=== PATIENT | male | born 1960 | race Caucasian/White ===

== ENCOUNTER 2019-03-11 08:52 | Observation (INO) ==
[2019-03-11] MEDS ORDERED: ASPIRIN CHEW 324 MG PO STA (11:27)
[2019-03-11] MEDS ORDERED: ASPIRIN 325 MG ECTAB PO ONE (11:30)
--- NOTE | 2019-03-11 11:55 | Pre Anesthesia Assessment ---
Date of Service March 11, 2019 Pre Sedation Assessment Cardiovascular + regular rate Respiratory normal respiratory effort, lungs clear to auscultation Pre-Sedation Airway Assessment Smoking Status: Never smoker Mallampati Class: III ASA: ASA3 NPO Status Date of Last Intake of Fluids: 03/11/19 Time of Last Intake of Fluids: 05:00 Date of Last Intake of Solid Food: 03/11/19 Time of Last Intake of Solid Foods: 05:00 Procedure Planning Contraindications for Sedation: none Current Medications Reviewed: Yes Notes The planned sedation has been discussed with the patient. Informed Consent was obtained. I have identified the patient, determined the appropriateness of sedation and have assessed the patient immediately prior to the procedure. All medicine(s) and interventions are by my order.
--- NOTE | 2019-03-11 12:04 | Cardiology Consultation ---
Date of Consultation March 11, 2019 Assessment & Plan (1) Abnormal stress echo: (2) Exertional angina: (3) High-grade atrioventricular block: (4) Hypertension: ASSESSMENT/PLAN: 1. Abnormal stress echo: Given his presenting symptoms, abnormal stress echo imaging, and development of high-grade AV block following exercise, there is significant concern for ischemic heart disease. Recommend coronary angiography. Risks and benefits were discussed with him in detail. He was made aware that CT surgery is not available at this facility. Stat labs ordered. 2. Exertional angina: Symptoms concerning for angina as noted above. Aspirin as above. Coronary angiography. Can continue beta-loyd (if severe CAD and not primarily a conduction issue) and SENIA-inhibitor. Stat labs ordered. If he is found to have CAD, recommend high-intensity statin therapy. Currently, no chest pain. 3. High-grade AV block: This occurred following exertion. He was quite symptomatic. If he is found to have no significant CAD, would then recommend electrophysiology consultation for consideration of pacemaker. Given that yhis occurred with exertion however, CAD may be the issue. Plan as above. Pacer pads in place. 4. Hypertension: Blood pressure mildly elevated. Would recommend continuation of home lisinopril dose. If he is found to have severe CAD, would continue beta-loyd. 5. Disposition: Cardiology will continue to follow. Patient presentation and plan discussed with admitting physician, Dr. Rivera, of the primary hospitalist service. Highly complex medical issues. Thank you for allowing me to participate in the care of your patient. Please call for any other questions or concerns. Sincerely, Sumit Childers M.D. History of Present Illness Reason for Consultation: Abnormal stress echo; high degree AV block following exercise Requesting Physician: Dr. Rivera Attending Physician: Dr. Rivera History of Present Illness Mr. Aguillon is a very pleasant 58-year-old gentleman with a history significant for hypertension who presented today for outpatient stress echo as ordered by Dr. Covarrubias, his PCP. Due to abnormal findings during stress echo, he was referred for admission. He states that for the past 3 years he has had borderline hypertension. He then noted that his diastolic pressure was elevated. He was then started on lisinopril 10 mg daily which was titrated to 20 mg daily. He recently was also started on metoprolol succinate 25 mg daily. He has noted over the past few months however since October or November that his exercise tolerance has decreased. He has left-sided chest tightness with "moderate" activity. This has progressed however over the past 60 days or so. Now even walking the stairs in his home can cause this chest tightness with dyspnea. There is no diaphoresis and no radiation of the pain. He denies any pain at rest. The chest discomfort resolves within 1-2 minutes of rest. He also has occasional lightheadedness with activity but no syncope. Because of his symptoms, he was referred for outpatient stress testing. During the stress echo today, he stated that he was doing better than he usually does. Just past the 6 minutes uma of the Cade protocol, he became more fatigue but dyspnea. He was in sinus tachycardia at that time. He then moved to the bed to undergo stress echo imaging. At that time, he developed Mobitz 1 and his heart rate went from 141 to 60 bpm in less than 1 minute into recovery. He then appeared to have complete AV dissociation with junctional rhythm with heart rates in the upper 40s. When this occurred, he felt very lightheaded, diaphoretic, and more short of breath. He had no left-sided chest discomfort during the stress echo or in recovery however. His blood pressure remained stable throughout. Then at approximately 6 minutes into recovery, he recovered AV michelle conduction and his symptoms immediately resolved. He denies any recent melena, hematochezia, hematuria, palpitations, edema, syncope, near-syncope, abdominal pain, nausea, vomiting, or recent fevers. Although he has had recent lightheadedness with exertion, he has not had anything nearly as profound as what was experience today during his stress echo. Stress echo images were preliminary early reviewed. LV systolic function did not significantly improve and LAD territory did not demonstrate significant augmentation following exercise. The right ventricle also appeared to be more dilated with reduced systolic function following exercise. Formal review to follow. Once he regained conduction through the AV node, he was completely asymptomatic and back to baseline. Review of systems: As above. Review of systems otherwise negative/unremarkable. Home medications: 1. Lisinopril 20 mg daily 2. Metoprolol succinate 25 mg daily Family history: No known premature CAD. Mother had valvular heart disease. Mother and father have . Social history: Denies tobacco or alcohol abuse. Lives at home with his . They have 1 son and 1 daughter. Daughter is to a visual stylist, Silas Zebanirudh (practices in the [place] area). 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 He was unaccompanied at the time of our discussion. Allergies Allergy/AdvReac Type Severity Reaction Status Date / Time No Known Allergies Allergy Verified 03/11/19 12:05 Home Medications Home Medications Medication Instructions Recorded Confirmed Type lisinopril 20 mg PO DAILY 03/11/19 03/11/19 History metoprolol succinate 25 mg PO DAILY 03/11/19 03/11/19 History Patient History Medical History Hypertension Lyme disease Social History Preferred Language: Icelandic Communication Ability: Effective Beliefs That Will Affect Care: None Current Living Situation: Spouse Feels Safe at Home: Yes Smoking Status: Never smoker Hx Alcohol Use: No Hx Substance Use: No Physical Exam Physical Exam: Gen.: No acute distress. Alert and oriented. HEENT: Anicteric sclera. Neck: No JVD. No bruits. Normal carotid upstrokes bilaterally. Cardiac: PMI was nondisplaced. No ventricular heave. Regular. Normal S1-S2. 1/6 systolic murmur. No rubs, or gallops. Pulmonary: Clear to auscultation bilaterally without wheezes, rales, or rhonchi. Abdomen: Soft, nontender, nondistended, with normoactive bowel sounds. No bruits noted. Extremities: 2+ radial pulses bilaterally. 2+ posterior tibialis pulses bilaterally. No edema or cyanosis. No palpable cords. Psychiatric: Affect appears appropriate. Results & Data Vital Signs (Past 12 Hours) Blood pressure 157/106 Pulse 87 bpm Respirations 16 per minute Temperature 36.8 Oxygen saturation 96% on room air Laboratory Results Labs 02/06/2019: Sodium 135; potassium 3.9; BUN 11; creatinine 0.85; troponin undetectable; AST 30; ALT 53; TSH 0.876; WBC 5.84; hemoglobin 14.3; platelets 258 Labs 11/05/2018: LDL 119; HDL 35; total cholesterol 182; triglycerides 199 Diagnostic Findings Stress echo findings as noted above in the HPI. Resting ECG personally reviewed: Sinus rhythm with sinus arrhythmia at [address]/T-wave abnormality. Medications Administered Aspirin 325 mg p.o. x1 PG Care Time/CCT Total # of Minutes Spent Total Time Spent with Patient: Total time spent is greater than 50% in coordination of care (as documented) at patient's floor/unit and/or counseling patient:
[2019-03-11 12:36] LABS: Basophils # (auto) 0.02 K/uL (0-0.2); Basophils % (auto) 0.3 %; Eosinophils # (auto) 0.02 K/uL (0-0.5); Eosinophils % (auto) 0.3 %; Hematocrit (blood only) 40.1 % (42-52); Hemoglobin 13.6 g/dL (14.0-18.0); Immature Granulocytes # (auto) 0.01 K/uL (0.00-0.02); Immature Granulocytes % (auto) 0.2 %; Lymphocytes % (auto) 21.3 %; Mean Corpuscular Hemoglobin 32.5 pg (25-34); Mean Corpuscular Volume 95.7 fL (80-100); Mean Platelet Volume 9.7 fL (7.4-10.4); Monocytes # (auto) 0.44 K/uL (0.11-0.59); Monocytes % (auto) 7.2 %; Neutrophils # (auto) 4.32 K/uL (1.4-6.5); Neutrophils % (auto) 70.7 %; Platelet Count 242 K/uL (130-400); RDW Coefficient of Variation 12.5 % (11.5-14.5); RDW Standard Deviation 43.3 fL (36.4-46.3); Red Blood Count 4.19 M/uL (4.7-6.1); White Blood Count 6.11 K/uL (4.8-10.8)
[2019-03-11 12:43] LABS: Prothrombin Time 10.7 Seconds (9.0-12.0)
[2019-03-11] MEDS ORDERED: HEPARIN (PORCINE) 1000 UNIT/ML 10 ML (CATH LAB USE ONLY) ONE (12:44)
[2019-03-11] MEDS ORDERED: MIDAZOLAM HCL 1 MG/ML 2ML VIAL ONE ×3 (12:44→14:42)
[2019-03-11] MEDS ORDERED: NiCARDipine HCL INJ 2.5 MG/ML 10 ML AMP ONE (12:44)
[2019-03-11] MEDS ORDERED: fentaNYL citrate 100 MCG/2 ML VIAL ONE ×2 (12:44→14:41)
[2019-03-11] MEDS ORDERED: NITROGLYCERIN/D5W 100MCG/ML 20ML SYR ONE (12:45)
[2019-03-11 12:48] LABS: BUN Creatinine Ratio 19.3 (10-20); Calcium 9.7 mg/dl (8.5-10.1); Est GFR (African American) 105.8; Est GFR (Non-African American) 91.3; Magnesium 2.4 mg/dl (1.8-2.4); Potassium 4.1 mmol/L (3.5-5.1)
[2019-03-11 12:58] LABS: Thyroid Stimulating Hormone 0.776 uIu/ml (0.300-4.500)
[2019-03-11 13:07] LABS: Mean Corpuscular Hgb Conc 33.9 g/dL (32-36)
[2019-03-11] MEDS ORDERED: NITROGLYCERIN SL 0.4 MG/TAB TAB ONE (13:35)
[2019-03-11] MEDS ORDERED: ADENOSINE IV SOLN 3 MG/ML 20 ML VIAL IV ONE (14:16)
--- NOTE | 2019-03-11 14:54 | Cardiac Catheterization ---
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 Clinical evaluation leading to the procedure CAD Presenation: Positive Stress Test and Stable angina Anginal Classification: CCS III Heart Failure: No Cardiogenic Shock within 24 Hours: No Cardiac Arrest within 24 Hours: No Imaging Studies Past 6 Months: No Stress Studies Past 6 Months: Yes Standard Exercise Test: Yes - Positive and Risk/Extent of Ischemia (High) Stress Echocardiogram: Yes - Positive and Risk/Extent of Ischemia (High) Stress Testing w/SPECT MPI: No Cardiac CTA: No Coronary Anatomy Dominant: Right Left Ventricular Angiography EF (%): n/a Diagnostic Physicians Name: Peter Childers MD Status: Elective Closure Device Percutaneous Entry Location: Femoral Closure Device: None-Manual Hold (will be determined by Interventional cardi ology) Recommendations: Management Recommendatons (Further evaluation of RCA and Circumflex by interventional cardiology.) Cardiac Cath Procedure Full Procedure Date March 11, 2019 Pre-Procedure Diagnosis Pre-Procedure Diagnosis: Angina, Positive Stress Test and Arrhythmia (High grade AV block following exercise (as part of stress echo)) AUC Score AUC Score: 9 Post-Procedure Diagnosis Post-Procedure Diagnosis: Severe CAD and Normal Intracardiac Pressures Procedure(s) Performed Procedure(s) Performed: Coronary Angiography, Left Heart Cath and Ultrasound Guided Vascular Access Credit Adjuster Peter Childers MD Lighting Fixture Installer(s) Gilbert Addison Estimated Blood Loss Estimated Blood Loss: < 30 ml Medication(s) Medication(s): Fentanyl, Lidocaine 1%, Nicardipine, Nitroglycerin and Versed Summary of Findings Procedures: 1. Coronary angiography 2. Left heart catheterization 3. Ultrasound guidance for vascular access 4. Moderate sedation Procedural details: 1. Right radial artery was easily cannulated with slender sheath. Wire was easily advanced into the aorta however a 6 Latvian JL 3.5 diagnostic catheter was unable to be advanced beyond the brachial artery due to spasm. A 4 Latvian catheter was then attempted, but once again the diagnostic catheter was unable to be advanced beyond the brachial artery, despite multiple doses of intra- arterial nicardipine, nitroglycerin, and then a sublingual nitroglycerin. 2. The decision was made to proceed via the right femoral artery. Coronary angiography: 1. Left main coronary artery: The LMCA is large in caliber without significant CAD. 2. Left anterior descending: The LAD is a large-caliber vessel that extends to the apex. LAD calcifications noted. Diffuse late proximal to mid LAD disease. The late proximal LAD with approximately 50% stenosis with the mid LAD 95+%, involving the ostium of a large D1. Proximal D1 50 - 70% diffuse CAD. Small D2 without significant CAD. The remainder of LAD without significant CAD. EARLINE-3 flow. 3. Circumflex: The circumflex is a large-caliber vessel. Proximal circumflex 50 - 70%. Small OM1 and large OM 2. Mid circumflex 40 to 50%. EARLINE-3 flow. 4. Right coronary artery: The RCA is a large and dominant vessel. Suspected severe CAD involving ostial RCA, > 70% stenosis. Proximal RCA 30%. Mid RCA 60 - 70%, involving the ostium of the acute marginal. Distal RCA diffuse 30% stenosis. Proximal PDA 40%. PL without significant CAD. EARLINE-3 flow. Faint right to left collaterals. Left heart catheterization: 1. Left ventriculography was not performed. 2. No significant aortic stenosis. 3. Normal LVEDP; 11 mmHg. Moderate sedation: 1. Sedation start time: 1:20 PM 2. Sedation end time: 2:05 PM Ultrasound guidance for vascular access: 1. Under ultrasound guidance, the right femoral artery was cannulated with 1 stick with a 5 Latvian Brigid sheath, without known complication. Impression: 1. Severe CAD involving the mid LAD, involving the ostial D1. 2. Suspected severe ostial RCA CAD and moderate to severe mid RCA CAD. 3. Mild and moderate CAD involving circumflex and PDA. 4. Faint right to left collaterals. 5. Normal LVEDP 6. No aortic stenosis. Plan: 1. Dr. Dowell of interventional cardiology was asked to review the images. He plans on performing FFR of RCA and possibly circumflex to help determine best course of action. Addendum: IFR of ostial RCA was 0.44. Recommend CT surgery evaluation for CABG. Hemodynamics Rest Ao:: 86/54 Final Ao: 94/56 LV: 104/5/11 Recommendations Recommendations: Management Recommendatons (Further evaluation of RCA and Circumflex by interventional cardiology.) Specimens Specimens: None Radiation Exposure (mGy) 1467 mGy. Fluoro time 6.5 min. Contrast (mls) 100 ml Fluids (cc crystalloids) Fluids (cc crystalloids): 250 ml of normal saline bolus for hypotension following vasodilators. Procedural Complication(s) None Disposition Remains in test lab technician for further evaluation by interventional cardiology. I attest to the content of the Intraoperative Record and any orders documented therein. Any exceptions are noted below. PG Care Time/CCT Total # of Minutes Spent Total Time Spent with Patient: Total time spent is greater than 50% in coordination of care (as documented) at patient's floor/unit and/or counseling patient:
--- NOTE | 2019-03-11 15:43 | Post Anesthesia Assessment ---
Date of Service March 11, 2019 Post Sedation Assessment Vital Signs Temp Pulse Resp BP Pulse Ox 03/11/19 15:30 78 20 139/88 98 03/11/19 15:25 78 20 145/78 H 98 03/11/19 15:20 78 20 155/85 H 98 03/11/19 15:15 78 20 132/85 98 03/11/19 11:58 36.8 C 87 16 157/106 H 96 Recovery Score Activity: Moves 4 extremities Respiration: Deep Breath/Cough Circulation: +/-20% PreAnes Value Consciousness: Fully Awake Oxygen Saturation: > 92% On Room Air Post Anesthesia Score: 10 Discharge Sedation Level of Care: Fast Track Phase II Post Sedation Plan On clinical assessment, the patient appears to have tolerated the sedation without complications. Patient is recovering as anticipated. Patient will continue to be monitored by nursing and may be discharged when sedation discharge criteria are met per below protocol. Upon Completions of procedure up to 15 minutes continue every 5 minute vital signs and the P.A.R. score; then discharge to a Phase I or Fast Track to Phase II per the following guidelines: * Discharge Patient to appropriate Phase II area if PAR is 8 or greater or return to pre- procedure baseline. The post - procedure orders will be as directed. * If PAR score is less than 8 or not return to pre-procedure baseline then patient will follow Phase I monitoring till PAR is reached for Phase II. The Phase I may be done in procedure room or may call to secure a Phase I area. * If naloxone or flumazenil are used for reversal, hold in Phase I for continued monitoring from when last reversal dose was given for a minimum of 60 minutes or longer pending the nurse and/or physician discretion of patient condition before discharge to Phase II. Please call the Sedation Physician to re-evaluate and complete post-note for discharge to Phase II area. Do NOT discharge from procedure sedation or Phase 1 until post- sedation evaluation note is complete by procedure /sedation MD Sedation Discharge Instructions to be given to the patient at discharge to home.
--- NOTE | 2019-03-11 16:26 | History & Physical Report ---
Date of Service March 11, 2019 Assessment & Plan (1) Exertional angina: Admits to PCU on telemetry Vital signs every 4 hours Due to abnormal abnormal stress echo and patient presenting symptoms with high- grade AV block following exercise there was a significant concern of ischemic heart disease. Patient underwent coronary angiography with the conclusion of severe coronary artery disease as to follow: Discussed with and he recommended to transfer patient via [facility] service to [facility] for higher level of care. Accepting physician is Dr.Charles Abdi. Continue for exertional angina: Aspirin , beta-loyd , SENIA-inhibitor. Supplemental oxygen on his way to [facility] as needed to keep oxygenation above 92%. Patient is stable and will be transferred via ground ambulance. DVT prophylaxis: CHALO gentiledavid Full code Present on Admission?: Yes (2) Abnormal stress echo: As the above Present on Admission?: Yes (3) High-grade atrioventricular block: As the above Present on Admission?: Yes (4) Hypertension: As the above Present on Admission?: Yes History of Present Illness Chief Complaint: Chest pain Primary Care Provider: Judah Satish Patient is a 58 years old male with past medical history of hypertension who failed outpatient stress test today ordered by Dr. Covarrubias his PCP. Patient immediately had catheterization done in our [facility] by Dr. Sumit Hernandez warehouse shipping receiving clerk who after evaluating the patient determined that patient has severe CAD involving mid LAD, involving the ostial D1. Suspected severe ostial RCA CAD and moderate to severe mid RCA CAD. Mid and moderate CAD involving circumflex and PDA. Faint [id number] collaterals. Patient tolerates procedure well but severity of the coronary artery disease prompted Dr. Childers to transfer patient to [facility] to the higher level of medical care. Patient is going to be transferred to [facility] in stable condition and admitting physician is Dr. Jose Abdi. Patient is going to be transferred vi a [facility] ambulance. Patient denies fever, chills, chest pain, shortness of breath, abdominal pain, frequency, urgency at this point. Allergies Allergy/AdvReac Type Severity Reaction Status Date / Time No Known Allergies Allergy Verified 03/11/19 12:05 Home Medications Home Medications Medication Instructions Recorded Confirmed Type lisinopril 20 mg PO DAILY 03/11/19 03/11/19 History metoprolol succinate 25 mg PO DAILY 03/11/19 03/11/19 History Past Med/Surg History Medical History Hypertension Lyme disease Social History Preferred Language: Lithuanian Communication Ability: Effective Beliefs That Will Affect Care: None Current Living Situation: Spouse Feels Safe at Home: Yes Smoking Status: Never smoker Hx Alcohol Use: No Hx Substance Use: No Review of Systems Review of Systems: All systems reviewed & are unremarkable except as noted in HPI & below Physical Exam Constitutional: WD/WN, vitals as above well developed and + obese Eyes: PERRL, conjunctivae normal, anicteric sclerae ENMT: external ear and nose normal, oropharynx normal Neck: trachea midline, no thyromegaly Respiratory: normal respiratory effort, lungs clear to auscultation Cardiovascular: RRR, no murmur, no edema Rate/Rhythm: + irregularly irregular Chest (Breasts): normal inspection/palpation of breasts Gastrointestinal (Abdomen): normal bowel sounds, soft, nontender, no hepatosplenomegaly Musculoskeletal: no cyanosis or clubbing, extremities motor strength 5/5 Skin: no rashes, warm and dry Neurologic: patellar DTR's 2+ bilat, sensation intact Psychiatric: A+Ox3, euthymic affect Lymphatic: no cervical or axillary lymphadenopathy Results & Data Vital Signs (Past 12 Hours) Vital Signs Temp Pulse Resp BP Pulse Ox 03/11/19 16:00 75 16 134/92 97 03/11/19 15:45 36.8 C 85 16 140/72 96 03/11/19 15:30 78 20 139/88 98 03/11/19 15:25 78 20 145/78 H 98 03/11/19 15:20 78 20 155/85 H 98 03/11/19 15:15 78 20 132/85 98 03/11/19 11:58 36.8 C 87 16 157/106 H 96 Code Status & VTE Plan Code Status Full code VTE Prophylaxis Plan VTE Prophylaxis will be ordered: Yes PG Care Time/CCT Total # of Minutes Spent Total Time Spent with Patient: Total time spent is greater than 50% in coordination of care (as documented) at patient's floor/unit and/or counseling patient:
[2019-03-11] MEDS ORDERED: SODIUM CHLORIDE 0.9% 500 ML IV PRN (16:33)
[2019-03-11] MEDS ORDERED: SODIUM CHLORIDE 0.9% 1000ML 1,000 ML IV SCH (16:45)
--- NOTE | 2019-03-11 16:55 | Cardiac Catheterization ---
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 Clinical evaluation leading to the procedure CAD Presenation: Positive Stress Test Anginal Classification: CCS IV Heart Failure: No Cardiogenic Shock within 24 Hours: No Cardiac Arrest within 24 Hours: No Imaging Studies Past 6 Months: Yes Stress Studies Past 6 Months: Yes Stress Echocardiogram: Yes - Positive and Risk/Extent of Ischemia (High) Diagnostic Physicians Name: Pepe Dowell MD Closure Device Percutaneous Entry Location: Femoral Closure Device: Mynx Recommendations: CABG Intraprocedure Events Significant Disection: No Perforation: No Cardiac Cath Procedure Full Procedure Date March 11, 2019 Pre-Procedure Diagnosis Pre-Procedure Diagnosis: Angina, Positive Stress Test and Arrhythmia (High grade AV block following exercise (as part of stress echo)) AUC Score AUC Score: 8 Post-Procedure Diagnosis Post-Procedure Diagnosis: Severe CAD Procedure(s) Performed Procedure(s) Performed: Coronary Angiography, IVUS and Fractional Flow [place] Slot Floor Person Pepe Dowell MD Supervisor Plate Pasting(s) Gilbert Addison Estimated Blood Loss Estimated Blood Loss: < 30 ml Medication(s) Medication(s): Fentanyl, Heparin, Lidocaine 1%, Nicardipine, Nitroglycerin and Versed Summary of Findings For full details of patient's coronary angiography please cath report dictated by Dr. Gan. Briefly, patient found to have multi-vessel disease including moderate to severe ostial/mid RCA disease and proximal circumflex disease. Decision to proceed with FFR. FFR 5 Fr sheath in right STORAGE BATTERY TESTER upsized to 6 Fr RCA cannulated with JR4 guide BMW wire passed across ostial/mid RCA lesions into distal vessel ACIST FFR catheter placed in the distal RCA PD/PA 0.4 ACIST catheter removed. IVUS used to try to assess ostial RCA. Unable to pass a [employer] IVUS catheter across stenosis. Post procedure angiography revealed no coronary complications. Summary: 1. Severe multivessel disease 95% mid LAD at bifurcation with diagonal Severe ostial RCA disease (PD/PA 0.4). 70% proximal circumflex angiographically Recommendations: Cardiac surgery evaluation for CABG Hemodynamics Rest Ao:: 94/56/73 Final Ao: 131/70/96 LV: -- Recommendations Recommendations: CABG Specimens Specimens: None Radiation Exposure (mGy) 2170 Contrast (mls) 130 Fluids (cc crystalloids) Fluids (cc crystalloids): 191 Drains Drains: none Anesthesia moderate Procedural Complication(s) None Disposition PCU I attest to the content of the Intraoperative Record and any orders documented therein. Any exceptions are noted below. [facility] Card Cath Procedure Codes Cardiac Catheterization Procedure 1: Cardiovascular Cath Procedures: 68315 (Doppler) Pressure Wire Therapeutic Services & Ancillary Proc Procedure 1: Cardiovascular Tx and Anc Procedures: 34556 IV Ultrasound (Coronary or Graft) Moderate Sedation Procedure 1: Sedation/Anesthesia: 73740 Mod Sedation by a different physician ;Init15 Min Child Age 5&Up PG Care Time/CCT Total # of Minutes Spent Total Time Spent with Patient: Total time spent is greater than 50% in coordination of care (as documented) at patient's floor/unit and/or counseling patient:
--- NOTE | 2019-03-11 17:03 | Discharge Summary ---
Date of Service March 11, 2019 Admission HPI Per Admitting Provider Patient is a 58 years old male with past medical history of hypertension who failed outpatient stress test today ordered by Dr. Covarrubias his PCP. Patient immediately had catheterization done in our [facility] by Dr. Sumit Hernandez data input clerk who after evaluating the patient determined that patient has severe CAD involving mid LAD, involving the ostial D1. Suspected severe ostial RCA CAD and moderate to severe mid RCA CAD. Mid and moderate CAD involving circumflex and PDA. Faint [id number]-no-ccxz collaterals. Patient tolerates procedure well but severity of the coronary artery disease prompted Dr. Childers to transfer patient to [facility] to the higher level of medical care. Patient is going to be transferred to [facility] in stable condition and admitting physician is Dr. Jose Abdi. Patient is going to be transferred via [facility]. Patient denies fever, chills, chest pain, shortness of breath, abdominal pain, frequency, urgency at this point. Principal Diagnosis none Discharge Exam Constitutional WD/WN, vitals as above well developed and + obese Eyes PERRL, conjunctivae normal, anicteric sclerae ENMT external ear and nose normal, oropharynx normal Mallampati Class: III Neck trachea midline, no thyromegaly Respiratory normal respiratory effort, lungs clear to auscultation Cardiovascular RRR, no murmur, no edema Rate/Rhythm: regular rate and + irregularly irregular Chest (Breasts) normal inspection/palpation of breasts Gastrointestinal (Abdomen) normal bowel sounds, soft, nontender, no hepatosplenomegaly Musculoskeletal no cyanosis or clubbing, extremities motor strength 5/5 Skin no rashes, warm and dry Neurologic patellar DTR's 2+ bilat, sensation intact Psychiatric A+Ox3, euthymic affect Lymphatic no cervical or axillary lymphadenopathy Discharge Data Allergies Allergy/AdvReac Type Severity Reaction Status Date / Time No Known Allergies Allergy Verified 03/11/19 12:05 Procedures Performed Operation Date: 03/11/19 13:00 Actual Procedures p Cath, Left with Cors and Vent - Peter Childers MD s Cineradiography w/Routine Exam - Peter Childers MD s Ultrasound Vascular Access - Peter Childers MD s IVUS Coronary Single Vessel(Not Applicable) - Ian Dowell MD Ordered Studies 03/11/19 13:05 CL Cath Imgs for PACS use only Routine Hospital Course (1) Exertional angina: Admits to PCU on telemetry Vital signs every 4 hours Due to abnormal abnormal stress echo and patient presenting symptoms with high- grade AV block following exercise there was a significant concern of ischemic heart disease. Patient underwent coronary angiography with the conclusion of severe coronary artery disease as to follow: Discussed with and he recommended to transfer patient via [facility] service to [facility] for higher level of care. Accepting physician is Dr.Charles Abdi. Continue for exertional angina: Aspirin , beta-loyd , SENIA-inhibitor. Supplemental oxygen on his way to [facility] as needed to keep oxygenation above 92%. Patient is stable and will be transferred via ground ambulance. DVT prophylaxis: CHALO aguilar Full code (2) Abnormal stress echo: As the above (3) High-grade atrioventricular block: As the above (4) Hypertension: As the above Total Time Total Time Spent Total Time Spent (In Minutes): Over 30 min Discharge Plan Discharge Items Patient Disposition: Transfer Acute Care Hospital Reason For Visit: HYPERTENSION,CHEST PAIN,TACHYCARDIA Discharge Diagnosis: SEVERE CAD, HTN Condition on Discharge: Good Activity: As commented below Lifting: Gradually increase as tolerated Non-emergency contact: Primary Care Provider and Inspector Filter Tip Follow-up/Referrals: Judah Covarrubias DO [Primary Care Provider] - Diet: Heart Healthy, Low Fat and Low Sodium (2gm) Addtl Attending Provider Instructions: ACTIVITY RECOMMENDATIONS: It is common to feel weak and fatigue for a few days. * Do not drive or operate any motorized equipment for the next three days. * Limit stair usage (2 or 3 trips a day only) for the next three days. * Do not lift anything heavier than 10 pounds for the next three days. * Do not engage in vigorous exercise or any sports for the next five days. * You may shower the day after your procedure, but do not immerse the area for three days. Cleanse the site gently with soap and water. SPECIAL CARE INSTRUCTIONS: * You may replace the pressure dressing or band-aid the morning after the procedure. * After your procedure, it is normal to have a small bruise or small lump at the site. Examine your site daily for any change in the bruise or lump, redness, swelling, drainage or numbness. Notify your doctor if any change. BLEEDING: * If there is a small amount of bleeding at the site, lie down and apply firm pressure with a clean cloth for ten minutes. When the bleeding stops, lie quietly keeping the procedure limb straight for six hours. Notify your doctor as soon as possible. * If the bleeding does not stop after ten minutes or if there is a large amount of bleeding or spurting, call 911 immediately. Continue to lie down and hold firm pressure until help arrives. SKIN IRRITATION: * You may experience some redness and/or swelling in the area where radiation was administered. If any skin irritation occurs, please contact your family physician. FOLLOW UP VISIT: Keep any scheduled doctor appointments. Addtl Corrugator Operator Helper Provider Instructions: You were treated for severe coronary artery disease at this hospital visit. You need a higher level of medical care and we are emergently transferring you to [facility] with accepting physician Dr. Jose Abdi. Follow-up with Dr. Childers in 1 to 2 weeks after discharge from [facility]. Pending Studies at Discharge: No Stand-Alone Forms: My [facility] [employer] Skilled Items Patient informed of condition?: Yes DNR: No Discharge Level of Care: Other Communicable Disease: No Discharge Prognosis: Stable Lines: Peripheral IV Urinary Catheter: No Medications and DC Order Prescriptions: New atorvastatin 40 mg Tablet 80 mg PO HS Qty: 30 RF: 0 lisinopril 20 mg Tablet 20 mg PO QAM Qty: 30 RF: 0 metoprolol tartrate 25 mg Tablet 25 mg PO BID Qty: 60 RF: 0 aspirin 81 mg tablet,chewable 81 mg PO DAILY Qty: 30 RF: 0 Discontinued lisinopril 20 mg Tablet 20 mg PO DAILY RF: 0 metoprolol succinate 25 mg Tablet Extended Release 24 Hr 25 mg PO DAILY RF: 0 Discharge Orders: Discharge Order (Routine); Ordered 03/11/19 Ordered By: Lin Rivera Admission Data Admit Date/Time: 03/11/19 16:36 Attending Provider: Judah Covarrubias Admit Provider: Lin Rivera Primary Care Provider: Judah Covarrubias
[2019-03-11] MEDS ORDERED: HydrALAZINE HCL 20 MG/ML VIAL IV STA (18:30)
[2019-03-11] MEDS ORDERED: HydrALAZINE HCL 20 MG/ML VIAL ONE (18:32)
[2019-03-11] MEDS ORDERED: METOPROLOL TARTRATE 25 MG TAB PO SCH (21:00)
[2019-03-11] MEDS ORDERED: ATORVASTATIN 40 MG TAB PO SCH (21:00)
[2019-03-12] MEDS ORDERED: METOPROLOL SUCC 25MG EXT REL TAB PO SCH (09:00)
[2019-03-12] MEDS ORDERED: LISINOPRIL 20 MG TAB PO SCH ×2 (09:00)
== END 2019-03-11 19:30 | disposition short-term general hospital (02) ==
LOC: CPL 08:52 → 2E 08:52